=== PATIENT | male | born 1955 | race Caucasian/White ===

== ENCOUNTER 2022-09-13 09:34 | Outpatient (CLI) | payer MEDICARE | END 2022-09-13 09:35 | disposition home or self-care (01) | LOC: CSHWCC 09:34 | PROVIDERS: ATTEND Nurse Practitioner Family | DX: I87.331 Chronic venous hypertension (idiopathic) with ulcer and inflammation of right lower extremity (principal); L97.812 Non-pressure chronic ulcer of other part of right lower leg with fat layer exposed; I87.332 Chronic venous hypertension (idiopathic) with ulcer and inflammation of left lower extremity; L97.822 Non-pressure chronic ulcer of other part of left lower leg with fat layer exposed; L97.829 Non-pressure chronic ulcer of other part of left lower leg with unspecified severity; R60.0 Localized edema | CPT/HCPCS: 29581; 97597 ==

== ENCOUNTER 2022-12-15 09:47 | Outpatient (CLI) | payer MEDICARE ==
[2022-12-15 11:59] LABS: Hematocrit 47.2 % (38.8-50.0); Hemoglobin 15.3 g/dL (13.5-17.5); Mean Corpuscular HGB CONC 32.4 g/dL (32.0-36.0); Mean Corpuscular Hemoglobin 28.5 pg (27.0-33.0); Mean Corpuscular Volume 88.1 fl (81.2-95.1); Mean Platelet Volume 9.1 fl (7.4-10.4); Platelet Count 277 10x3/uL (150-450); RBC Distribution Width 14.6 % (11.5-14.5); Red Blood Cell (RBC) Count 5.36 10x6/uL (4.32-5.72); White Blood Cell (WBC) Count 11.2 10x3/uL (3.5-10.5)
[2022-12-15 12:25] LABS: Anion Gap 14 mmol/L (10-20); BUN (Urea Nitrogen) 13 mg/dL (8.4-25.7); Calc. Creatinine Clearance 0 mL/min (70-130); Calcium 9.4 mg/dL (7.8-10.44); Carbon Dioxide 23 mmol/L (23-31); Chloride 106 mmol/L (98-107); Estimated GFR 95; Glucose 117 mg/dL (80-115); Sodium 139 mmol/L (136-145)
== END 2022-12-15 09:48 | disposition home or self-care (01) ==
LOC: CSHLAB 09:47
PROVIDERS: ATTEND Surgery
DX: Z01.818 Encounter for other preprocedural examination (principal)
CPT/HCPCS: 80048; 85027; 93005; 93010

== ENCOUNTER 2022-12-16 05:45 | Day surgery (SDC) | payer MEDICARE ==
[2022-12-13 14:15] VITALS: BMI 34.0
[2022-12-16] MEDS ORDERED: EPINEPHrine 1 MG/ML VIAL ONE (06:30)
[2022-12-16] MEDS ORDERED: Bupivacaine PF 0.5% 30 ML VIAL ONE (06:30)
[2022-12-16] MEDS ORDERED: Lidocaine 2% PF 5 ML VIAL ONE (06:56)
[2022-12-16] MEDS ORDERED: Midazolam HCl 2 mg/2 ml Vial ONE (06:56)
[2022-12-16] MEDS ORDERED: fentaNYL 50 mcg/mL 1 mL Vial ONE (06:56)
[2022-12-16] MEDS ORDERED: PROPOFOL 20 ML ONE (06:56)
[2022-12-16] MEDS ORDERED: CEFAZOLIN 2 GM VIAL ONE (06:57)
[2022-12-16] MEDS ORDERED: Fentanyl 250 MCG/5 ML VIAL ONE (07:14)
[2022-12-16] MEDS ORDERED: HYDROcodone/Acetaminophen 5/325 mg Tablet PO PRN (07:44)
[2022-12-16] MEDS ORDERED: Acetaminophen 325 MG TAB PO PRN (07:44)
== END 2022-12-16 08:55 | disposition home or self-care (01) ==
LOC: CSHSDC 05:45
PROVIDERS: ATTEND Surgery
PROC: 0JH60WZ Insertion of Totally Implantable Vascular Access Device into Chest Subcutaneous Tissue and Fascia, Open Approach (ICD-10-PCS; principal; 2022-12-16)
PROC: 07BH0ZX Excision of Right Inguinal Lymphatic, Open Approach, Diagnostic (ICD-10-PCS; 2022-12-16)
DX: C76.51 Malignant neoplasm of right lower limb (principal); I50.9 Heart failure, unspecified; R59.0 Localized enlarged lymph nodes; F17.200 Nicotine dependence, unspecified, uncomplicated; Z88.5 Allergy status to narcotic agent
CPT/HCPCS: 36561; 38505; 71045; C1788; J0171; J3010; 88305; 88341; 88342; J1642; J2001; J2250; J2704; S0020

== ENCOUNTER 2022-12-22 12:59 | Outpatient (CLI) | payer MEDICARE | END 2022-12-22 13:00 | disposition home or self-care (01) | LOC: CSHWCC 12:59 | PROVIDERS: ATTEND Physician Assistant | DX: C44.729 Squamous cell carcinoma of skin of left lower limb, including hip (principal); C44.722 Squamous cell carcinoma of skin of right lower limb, including hip | CPT/HCPCS: 97597 ==

== ENCOUNTER 2023-03-06 13:50 | Outpatient (CLI) | payer MEDICARE | END 2023-03-06 13:51 | disposition home or self-care (01) | LOC: CSHWCC 13:50 | PROVIDERS: ATTEND Physician Assistant | DX: I87.313 Chronic venous hypertension (idiopathic) with ulcer of bilateral lower extremity (principal); L97.919 Non-pressure chronic ulcer of unspecified part of right lower leg with unspecified severity; L97.929 Non-pressure chronic ulcer of unspecified part of left lower leg with unspecified severity; C44.722 Squamous cell carcinoma of skin of right lower limb, including hip; C44.729 Squamous cell carcinoma of skin of left lower limb, including hip | CPT/HCPCS: 99213; G0463 ==

== ENCOUNTER 2023-03-27 13:08 | Outpatient (CLI) | payer MEDICARE | END 2023-03-27 13:09 | disposition home or self-care (01) | LOC: CSHWCC 13:08 | PROVIDERS: ATTEND Nurse Practitioner Family | DX: I87.313 Chronic venous hypertension (idiopathic) with ulcer of bilateral lower extremity (principal); C44.722 Squamous cell carcinoma of skin of right lower limb, including hip; C44.729 Squamous cell carcinoma of skin of left lower limb, including hip; L97.929 Non-pressure chronic ulcer of unspecified part of left lower leg with unspecified severity; L97.919 Non-pressure chronic ulcer of unspecified part of right lower leg with unspecified severity | CPT/HCPCS: 87070; 87077; 87186; 87205; 97597; 97598 ==

== ENCOUNTER 2023-04-05 13:29 | Outpatient (CLI) | payer MEDICARE | END 2023-04-05 13:30 | disposition home or self-care (01) | LOC: CSHWCC 13:29 | PROVIDERS: ATTEND Nurse Practitioner Family | DX: I87.313 Chronic venous hypertension (idiopathic) with ulcer of bilateral lower extremity (principal); L97.919 Non-pressure chronic ulcer of unspecified part of right lower leg with unspecified severity; L97.929 Non-pressure chronic ulcer of unspecified part of left lower leg with unspecified severity; C44.722 Squamous cell carcinoma of skin of right lower limb, including hip; C44.729 Squamous cell carcinoma of skin of left lower limb, including hip | CPT/HCPCS: 97597; 97598 ==

== ENCOUNTER 2023-07-26 13:33 | Outpatient (CLI) | payer MEDICARE | END 2023-07-26 13:34 | disposition home or self-care (01) | LOC: CSHWCC 13:33 | PROVIDERS: ATTEND Nurse Practitioner Family | DX: I87.313 Chronic venous hypertension (idiopathic) with ulcer of bilateral lower extremity (principal); L97.919 Non-pressure chronic ulcer of unspecified part of right lower leg with unspecified severity; L97.929 Non-pressure chronic ulcer of unspecified part of left lower leg with unspecified severity; C44.722 Squamous cell carcinoma of skin of right lower limb, including hip; C44.729 Squamous cell carcinoma of skin of left lower limb, including hip | CPT/HCPCS: 97597; 97598 ==

== ENCOUNTER 2023-08-23 14:14 | Outpatient (CLI) | payer MEDICARE | END 2023-08-23 14:15 | disposition home or self-care (01) | LOC: CSHWCC 14:14 | PROVIDERS: ATTEND Nurse Practitioner Family | DX: I87.313 Chronic venous hypertension (idiopathic) with ulcer of bilateral lower extremity (principal); C44.722 Squamous cell carcinoma of skin of right lower limb, including hip; C44.729 Squamous cell carcinoma of skin of left lower limb, including hip | CPT/HCPCS: 11042; 11045 ==

== ENCOUNTER 2023-09-13 12:53 | Outpatient (CLI) | payer MEDICARE | END 2023-09-13 12:54 | disposition home or self-care (01) | LOC: CSHWCC 12:53 | PROVIDERS: ATTEND Nurse Practitioner Family | DX: I87.313 Chronic venous hypertension (idiopathic) with ulcer of bilateral lower extremity (principal); L97.212 Non-pressure chronic ulcer of right calf with fat layer exposed; L97.222 Non-pressure chronic ulcer of left calf with fat layer exposed; L97.322 Non-pressure chronic ulcer of left ankle with fat layer exposed; L97.312 Non-pressure chronic ulcer of right ankle with fat layer exposed; C44.722 Squamous cell carcinoma of skin of right lower limb, including hip; C44.729 Squamous cell carcinoma of skin of left lower limb, including hip | CPT/HCPCS: 11042; 11045 ==

== ENCOUNTER 2023-11-08 13:09 | Outpatient (CLI) | payer MEDICARE | END 2023-11-08 13:10 | disposition home or self-care (01) | LOC: CSHWCC 13:09 | PROVIDERS: ATTEND Nurse Practitioner Family | DX: I87.313 Chronic venous hypertension (idiopathic) with ulcer of bilateral lower extremity (principal); C44.722 Squamous cell carcinoma of skin of right lower limb, including hip; C44.729 Squamous cell carcinoma of skin of left lower limb, including hip; L97.212 Non-pressure chronic ulcer of right calf with fat layer exposed; L97.222 Non-pressure chronic ulcer of left calf with fat layer exposed; L97.322 Non-pressure chronic ulcer of left ankle with fat layer exposed; L97.312 Non-pressure chronic ulcer of right ankle with fat layer exposed | CPT/HCPCS: 11042; 11045; 87070; 87077; 87205 ==

== ENCOUNTER 2023-12-06 14:23 | Outpatient (CLI) | payer MEDICARE | END 2023-12-06 14:24 | disposition home or self-care (01) | LOC: CSHWCC 14:23 | PROVIDERS: ATTEND Nurse Practitioner Family | DX: I87.313 Chronic venous hypertension (idiopathic) with ulcer of bilateral lower extremity (principal); L97.212 Non-pressure chronic ulcer of right calf with fat layer exposed; L97.222 Non-pressure chronic ulcer of left calf with fat layer exposed; L97.312 Non-pressure chronic ulcer of right ankle with fat layer exposed; L97.322 Non-pressure chronic ulcer of left ankle with fat layer exposed; C44.722 Squamous cell carcinoma of skin of right lower limb, including hip; C44.729 Squamous cell carcinoma of skin of left lower limb, including hip | CPT/HCPCS: 11042; 11045 ==

== ENCOUNTER 2023-12-20 14:31 | Outpatient (CLI) | payer MEDICARE | END 2023-12-20 14:32 | disposition home or self-care (01) | LOC: CSHWCC 14:31 | PROVIDERS: ATTEND Nurse Practitioner Family | DX: I87.313 Chronic venous hypertension (idiopathic) with ulcer of bilateral lower extremity (principal); L97.212 Non-pressure chronic ulcer of right calf with fat layer exposed; L97.222 Non-pressure chronic ulcer of left calf with fat layer exposed; L97.322 Non-pressure chronic ulcer of left ankle with fat layer exposed; L97.312 Non-pressure chronic ulcer of right ankle with fat layer exposed; C44.722 Squamous cell carcinoma of skin of right lower limb, including hip; C44.729 Squamous cell carcinoma of skin of left lower limb, including hip | CPT/HCPCS: 11042; 11045 ==

== ENCOUNTER 2023-12-28 12:41 | Outpatient (CLI) | payer MEDICARE | END 2023-12-28 12:42 | disposition home or self-care (01) | LOC: CSHWCC 12:41 | PROVIDERS: ATTEND Nurse Practitioner Family | DX: I87.313 Chronic venous hypertension (idiopathic) with ulcer of bilateral lower extremity (principal); C44.722 Squamous cell carcinoma of skin of right lower limb, including hip; C44.729 Squamous cell carcinoma of skin of left lower limb, including hip; L97.212 Non-pressure chronic ulcer of right calf with fat layer exposed; L97.222 Non-pressure chronic ulcer of left calf with fat layer exposed; L97.322 Non-pressure chronic ulcer of left ankle with fat layer exposed; L97.312 Non-pressure chronic ulcer of right ankle with fat layer exposed | CPT/HCPCS: 11042; 11045 ==

== ENCOUNTER 2024-01-03 14:04 | Outpatient (CLI) | payer MEDICARE | END 2024-01-03 14:05 | disposition home or self-care (01) | LOC: CSHWCC 14:04 | PROVIDERS: ATTEND Nurse Practitioner Family | DX: I87.313 Chronic venous hypertension (idiopathic) with ulcer of bilateral lower extremity (principal); L97.212 Non-pressure chronic ulcer of right calf with fat layer exposed; L97.222 Non-pressure chronic ulcer of left calf with fat layer exposed; L97.322 Non-pressure chronic ulcer of left ankle with fat layer exposed; L97.312 Non-pressure chronic ulcer of right ankle with fat layer exposed; C44.722 Squamous cell carcinoma of skin of right lower limb, including hip; C44.729 Squamous cell carcinoma of skin of left lower limb, including hip | CPT/HCPCS: 11042; 11045; 87070; 87077; 87205 ==

== ENCOUNTER 2024-01-10 09:01 | Outpatient (CLI) | payer MEDICARE, OTHER | END 2024-01-10 09:02 | disposition home or self-care (01) | LOC: CSHWCC 09:01 | PROVIDERS: ATTEND Nurse Practitioner Family | DX: I87.313 Chronic venous hypertension (idiopathic) with ulcer of bilateral lower extremity (principal); C44.722 Squamous cell carcinoma of skin of right lower limb, including hip; C44.729 Squamous cell carcinoma of skin of left lower limb, including hip; L97.212 Non-pressure chronic ulcer of right calf with fat layer exposed; L97.222 Non-pressure chronic ulcer of left calf with fat layer exposed; L97.322 Non-pressure chronic ulcer of left ankle with fat layer exposed; L97.312 Non-pressure chronic ulcer of right ankle with fat layer exposed | CPT/HCPCS: 11042; 11045 ==

== ENCOUNTER 2024-01-17 11:49 | Outpatient (CLI) | payer MEDICARE, OTHER | END 2024-01-17 11:50 | disposition home or self-care (01) | LOC: CSHWCC 11:49 | PROVIDERS: ATTEND Nurse Practitioner Family | DX: I87.313 Chronic venous hypertension (idiopathic) with ulcer of bilateral lower extremity (principal); L97.212 Non-pressure chronic ulcer of right calf with fat layer exposed; L97.222 Non-pressure chronic ulcer of left calf with fat layer exposed; L97.312 Non-pressure chronic ulcer of right ankle with fat layer exposed; L97.322 Non-pressure chronic ulcer of left ankle with fat layer exposed; C44.722 Squamous cell carcinoma of skin of right lower limb, including hip; C44.729 Squamous cell carcinoma of skin of left lower limb, including hip | CPT/HCPCS: 11042; 11045 ==

== ENCOUNTER 2024-01-24 13:36 | Outpatient (CLI) | payer MEDICARE, OTHER | END 2024-01-24 13:37 | disposition home or self-care (01) | LOC: CSHWCC 13:36 | PROVIDERS: ATTEND Nurse Practitioner Family | DX: I87.313 Chronic venous hypertension (idiopathic) with ulcer of bilateral lower extremity (principal); L97.212 Non-pressure chronic ulcer of right calf with fat layer exposed; L97.222 Non-pressure chronic ulcer of left calf with fat layer exposed; L97.322 Non-pressure chronic ulcer of left ankle with fat layer exposed; L97.312 Non-pressure chronic ulcer of right ankle with fat layer exposed; C44.722 Squamous cell carcinoma of skin of right lower limb, including hip; C44.729 Squamous cell carcinoma of skin of left lower limb, including hip | CPT/HCPCS: 11042; 11045 ==

== ENCOUNTER 2024-02-02 15:06 | Outpatient (CLI) | payer MEDICARE | END 2024-02-02 15:07 | disposition home or self-care (01) | LOC: CSHWCC 15:06 | PROVIDERS: ATTEND Nurse Practitioner Family | DX: I87.313 Chronic venous hypertension (idiopathic) with ulcer of bilateral lower extremity (principal); L97.212 Non-pressure chronic ulcer of right calf with fat layer exposed; L97.222 Non-pressure chronic ulcer of left calf with fat layer exposed; L97.322 Non-pressure chronic ulcer of left ankle with fat layer exposed; L97.312 Non-pressure chronic ulcer of right ankle with fat layer exposed; C44.722 Squamous cell carcinoma of skin of right lower limb, including hip; C44.729 Squamous cell carcinoma of skin of left lower limb, including hip | CPT/HCPCS: 11042 ==

== ENCOUNTER 2024-02-09 13:54 | Outpatient (CLI) | payer MEDICARE | END 2024-02-09 13:55 | disposition home or self-care (01) | LOC: CSHWCC 13:54 | PROVIDERS: ATTEND Nurse Practitioner Family | DX: I87.313 Chronic venous hypertension (idiopathic) with ulcer of bilateral lower extremity (principal); L97.212 Non-pressure chronic ulcer of right calf with fat layer exposed; L97.222 Non-pressure chronic ulcer of left calf with fat layer exposed; L97.322 Non-pressure chronic ulcer of left ankle with fat layer exposed; L97.312 Non-pressure chronic ulcer of right ankle with fat layer exposed; C44.722 Squamous cell carcinoma of skin of right lower limb, including hip; C44.729 Squamous cell carcinoma of skin of left lower limb, including hip | CPT/HCPCS: 11042; 11045 ==

== ENCOUNTER 2024-02-16 12:50 | Outpatient (CLI) | payer MEDICARE | END 2024-02-16 12:51 | disposition home or self-care (01) | LOC: CSHWCC 12:50 | PROVIDERS: ATTEND Nurse Practitioner Family | DX: I87.313 Chronic venous hypertension (idiopathic) with ulcer of bilateral lower extremity (principal); L97.212 Non-pressure chronic ulcer of right calf with fat layer exposed; L97.222 Non-pressure chronic ulcer of left calf with fat layer exposed; L97.312 Non-pressure chronic ulcer of right ankle with fat layer exposed; L97.322 Non-pressure chronic ulcer of left ankle with fat layer exposed; C44.729 Squamous cell carcinoma of skin of left lower limb, including hip; C44.722 Squamous cell carcinoma of skin of right lower limb, including hip | CPT/HCPCS: 11042; 11045 ==

== ENCOUNTER 2024-02-23 12:56 | Outpatient (CLI) | payer MEDICARE | END 2024-02-23 12:57 | disposition home or self-care (01) | LOC: CSHWCC 12:56 | PROVIDERS: ATTEND Nurse Practitioner Family | DX: I87.313 Chronic venous hypertension (idiopathic) with ulcer of bilateral lower extremity (principal); L97.212 Non-pressure chronic ulcer of right calf with fat layer exposed; L97.222 Non-pressure chronic ulcer of left calf with fat layer exposed; L97.322 Non-pressure chronic ulcer of left ankle with fat layer exposed; L97.312 Non-pressure chronic ulcer of right ankle with fat layer exposed; C44.722 Squamous cell carcinoma of skin of right lower limb, including hip; C44.729 Squamous cell carcinoma of skin of left lower limb, including hip | CPT/HCPCS: 11042; 11045 ==

== ENCOUNTER 2024-03-01 12:55 | Outpatient (CLI) | payer MEDICARE | END 2024-03-01 12:56 | disposition home or self-care (01) | LOC: CSHWCC 12:55 | PROVIDERS: ATTEND Nurse Practitioner Family | DX: I87.313 Chronic venous hypertension (idiopathic) with ulcer of bilateral lower extremity (principal); L97.212 Non-pressure chronic ulcer of right calf with fat layer exposed; L97.222 Non-pressure chronic ulcer of left calf with fat layer exposed; L97.322 Non-pressure chronic ulcer of left ankle with fat layer exposed; L97.312 Non-pressure chronic ulcer of right ankle with fat layer exposed; C44.722 Squamous cell carcinoma of skin of right lower limb, including hip; C44.729 Squamous cell carcinoma of skin of left lower limb, including hip | CPT/HCPCS: 11042 ==

== ENCOUNTER 2024-03-22 14:32 | Outpatient (CLI) | payer MEDICARE | END 2024-03-22 14:33 | disposition home or self-care (01) | LOC: CSHWCC 14:32 | PROVIDERS: ATTEND Nurse Practitioner Family | DX: I87.313 Chronic venous hypertension (idiopathic) with ulcer of bilateral lower extremity (principal); L97.212 Non-pressure chronic ulcer of right calf with fat layer exposed; L97.222 Non-pressure chronic ulcer of left calf with fat layer exposed; L97.312 Non-pressure chronic ulcer of right ankle with fat layer exposed; L97.322 Non-pressure chronic ulcer of left ankle with fat layer exposed; C44.722 Squamous cell carcinoma of skin of right lower limb, including hip; C44.729 Squamous cell carcinoma of skin of left lower limb, including hip | CPT/HCPCS: 11042 ==

== ENCOUNTER 2024-09-11 13:12 | Outpatient (CLI) | payer MEDICARE | END 2024-09-11 13:13 | disposition home or self-care (01) | LOC: CSHWCC 13:12 | PROVIDERS: ATTEND Nurse Practitioner Family | DX: I87.313 Chronic venous hypertension (idiopathic) with ulcer of bilateral lower extremity (principal); L97.312 Non-pressure chronic ulcer of right ankle with fat layer exposed; L97.212 Non-pressure chronic ulcer of right calf with fat layer exposed; I87.2 Venous insufficiency (chronic) (peripheral); Z72.0 Tobacco use | CPT/HCPCS: 11042; G0463; 99214 ==

== ENCOUNTER 2024-09-25 12:36 | Outpatient (CLI) | payer OTHER, MEDICARE | END 2024-09-25 12:37 | disposition home or self-care (01) | LOC: CSHWCC 12:36 | PROVIDERS: ATTEND Nurse Practitioner Family | DX: I87.313 Chronic venous hypertension (idiopathic) with ulcer of bilateral lower extremity (principal); L97.312 Non-pressure chronic ulcer of right ankle with fat layer exposed; L97.212 Non-pressure chronic ulcer of right calf with fat layer exposed; L97.512 Non-pressure chronic ulcer of other part of right foot with fat layer exposed; L97.929 Non-pressure chronic ulcer of unspecified part of left lower leg with unspecified severity; I87.2 Venous insufficiency (chronic) (peripheral); Z72.0 Tobacco use | CPT/HCPCS: 11042; 11719 ==

== ENCOUNTER 2024-10-16 12:34 | Outpatient (CLI) | payer OTHER | END 2024-10-16 12:35 | disposition home or self-care (01) | LOC: CSHWCC 12:34 | PROVIDERS: ATTEND Nurse Practitioner Family | DX: I87.313 Chronic venous hypertension (idiopathic) with ulcer of bilateral lower extremity (principal); L97.312 Non-pressure chronic ulcer of right ankle with fat layer exposed; L97.212 Non-pressure chronic ulcer of right calf with fat layer exposed; L97.512 Non-pressure chronic ulcer of other part of right foot with fat layer exposed; L97.929 Non-pressure chronic ulcer of unspecified part of left lower leg with unspecified severity; I87.2 Venous insufficiency (chronic) (peripheral); Z72.0 Tobacco use | CPT/HCPCS: 11042; 11719 ==

== ENCOUNTER 2024-10-30 12:49 | Outpatient (CLI) | payer OTHER | END 2024-10-30 12:50 | disposition home or self-care (01) | LOC: CSHWCC 12:49 | PROVIDERS: ATTEND Nurse Practitioner Family | DX: I87.313 Chronic venous hypertension (idiopathic) with ulcer of bilateral lower extremity (principal); L97.312 Non-pressure chronic ulcer of right ankle with fat layer exposed; L97.212 Non-pressure chronic ulcer of right calf with fat layer exposed; L97.512 Non-pressure chronic ulcer of other part of right foot with fat layer exposed; L97.929 Non-pressure chronic ulcer of unspecified part of left lower leg with unspecified severity; I87.2 Venous insufficiency (chronic) (peripheral); Z72.0 Tobacco use | CPT/HCPCS: 99212; G0463 ==